=== PATIENT | female | born 1990 | race Two or more races ===

== ENCOUNTER 2019-08-23 20:25 | Emergency (ER) | payer SELFPAY ==
[~2019-08-23] VITALS: Ht 160 cm; Wt 63.5 kg
--- NOTE | 2019-08-23 20:45 | NUR ---
ED Nurse Note: Patient walked in from home d/t n/v/d for last 2 days. Patient denies cough or SOB. Patient aao x 4 and ambulatory. Patient stated emesis undigested food. Patient placed in gown and svp monetization. no acute distress noted.
[2019-08-23 20:57] VITALS: BP 137/88
--- NOTE | 2019-08-23 20:58 | NUR ---
ED Nurse Note: ERMD at bedside.
[2019-08-23] MEDS ORDERED: Metoclopramide 10mg/2ml Inj IVP ONE (21:00)
[2019-08-23] MEDS ORDERED: Morphine Sulfate 2mg/ml Inj(IV/IM USE ONLY) IVP ONE (21:00)
[2019-08-23] MEDS ORDERED: DiphenhydrAMINE 50mg/ml Inj IVP ONE (21:00)
[2019-08-23] MEDS ORDERED: Sodium Chloride 1,900 ML IVLG ONE (21:00)
--- NOTE | 2019-08-23 21:02 | Emergency Room Report ---
History of Present Illness General Chief Complaint: Nausea, Vomiting, and Diarrhea Source: Patient Present Illness HPI Patient presents with 1 day of nausea vomiting and diarrhea. She has moved her bowels 3 times and has been watery without any blood. She tried to take some Pepto-Bismol but vomited this back up. She is complaining about muscle aches. She also feels weak when she stands up. She denies any fevers or chills. There is no blood in the vomit. She denies any abdominal pain. Her last menstruation was August 05 and normal for her. She denies dysuria. The muscle aches are rated 10/10 and nonradiating. All extremities have tenderness. Her friend is also ill at this time has a daughter who had vomiting 2 days ago. They ate no unusual foods and she has not travelled. No sore throat, chest pain, palpitations, shortness of breath, rashes, depression, anxiety, visual changes, dizziness, headache. Allergies: Coded Allergies: No Known Allergies (Unverified , 08/23/19) Patient History Past Medical History: see triage record Social History: Denies: smoking, alcohol use, drug use Social History Narrative Not employed at this time Last Menstrual Period: 08/05/19 Now: No : 0 Reviewed Nursing Documentation: PMH: Agreed; PSxH: Agreed Nursing Documentation-PMH Past Medical History: No Stated History Hx Cardiac Problems: No Hx Hypertension: No Hx Pacemaker: No Hx Asthma: No Hx COPD: No Hx Diabetes: No Hx Cancer: No Hx Gastrointestinal Problems: No Hx Dialysis: No History Of Psychiatric Problem: No Hx Neurological Problems: No Hx Cerebrovascular Accident: No Hx Seizures: No Physical Exam Vital Signs Date Time Temp Pulse Resp B/P (MAP) Pulse Ox O2 Delivery O2 Flow Rate FiO2 08/23/19 20:39 99.1 114 19 132/68 (89) 97 Room Air Sp02 EP Interpretation: reviewed, normal General Appearance: well appearing, no apparent distress, GCS 15, non-toxic Head: normocephalic, atraumatic Eyes: bilateral eye normal inspection, bilateral eye PERRL, bilateral eye EOMI ENT: normal pharynx, moist mucus membranes Neck: supple Respiratory: chest non-tender, lungs clear, normal breath sounds Cardiovascular #1: regular rate, rhythm Cardiovascular #2: 2+ radial (R) Gastrointestinal: normal inspection, normal bowel sounds, non tender, no mass, non-distended Musculoskeletal: back normal, normal range of motion, digits/nails normal, gait /station normal Neurologic: alert, oriented x3, grossly normal Psychiatric: mood/affect normal Skin: no rash, warm/dry Medical Decision Making Diagnostic Impression: Primary Impression: Gastroenteritis ER Course Patient presents with nausea vomiting diarrhea with body aches. Differential includes food poisoning versus gastroenteritis. Patient will be evaluated with labs. She will receive IV hydration Reglan Benadryl Pepcid and a small dose of morphine. Labs significant for normal white count. Potassium minimally low. Urinalysis clear. Patient improved with treatment. She is tolerating oral intake. Pain is resolved with treatment. Discussed treatment plan with patient. Patient stable for outpatient observation and treatment. Labs Test 08/23/19 21:12 08/23/19 21:50 White Blood Count 10.2 K/UL (4.8-10.8) Red Blood Count 4.12 M/UL (4.20-5.40) Hemoglobin 13.0 G/DL (12.0-16.0) Hematocrit 36.7 % (37.0-47.0) Mean Corpuscular Volume 89 FL (80-99) Mean Corpuscular Hemoglobin 31.5 PG (27.0-31.0) Mean Corpuscular Hemoglobin Concent 35.4 G/DL (32.0-36.0) Red Cell Distribution Width 11.1 % (11.6-14.8) Platelet Count 243 K/UL (150-450) Mean Platelet Volume 7.1 FL (6.5-10.1) Neutrophils (%) (Auto) 78.2 % (45.0-75.0) Lymphocytes (%) (Auto) 12.5 % (20.0-45.0) Monocytes (%) (Auto) 8.8 % (1.0-10.0) Eosinophils (%) (Auto) 0.2 % (0.0-3.0) Basophils (%) (Auto) 0.3 % (0.0-2.0) Sodium Level 136 MMOL/L (136-145) Potassium Level 3.4 MMOL/L (3.5-5.1) Chloride Level 101 MMOL/L (98-107) Carbon Dioxide Level 28 MMOL/L (21-32) Anion Gap 7 mmol/L (5-15) Blood Urea Nitrogen 8 mg/dL (7-18) Creatinine 0.9 MG/DL (0.55-1.30) Estimat Glomerular Filtration Rate > 60 mL/min (>60) Glucose Level 101 MG/DL (74-106) Calcium Level 8.7 MG/DL (8.5-10.1) Total Bilirubin 0.8 MG/DL (0.2-1.0) Aspartate Amino Transf (AST/SGOT) 15 U/L (15-37) Alanine Aminotransferase (ALT/SGPT) 22 U/L (12-78) Alkaline Phosphatase 62 U/L (46-116) Total Protein 8.3 G/DL (6.4-8.2) Albumin 3.9 G/DL (3.4-5.0) Globulin 4.4 g/dL Albumin/Globulin Ratio 0.9 (1.0-2.7) Lipase 75 U/L (73-393) Urine Color Pale yellow Urine Appearance Clear Urine pH 5 (4.5-8.0) Urine Specific [place] 1.015 (1.005-1.035) Urine Protein 3+ (NEGATIVE) Urine Glucose (UA) Negative (NEGATIVE) Urine Ketones Negative (NEGATIVE) Urine Blood 1+ (NEGATIVE) Urine Nitrite Negative (NEGATIVE) Urine Bilirubin Negative (NEGATIVE) Urine Urobilinogen Normal MG/DL (0.0-1.0) Urine Leukocyte Esterase Negative (NEGATIVE) Urine RBC 2-4 /HPF (0 - 2) Urine WBC 0-2 /HPF (0 - 2) Urine Squamous Epithelial Cells Few /LPF (NONE/OCC) Urine Bacteria Few /HPF (NONE) Last Vital Signs Date Time Temp Pulse Resp B/P (MAP) Pulse Ox O2 Delivery O2 Flow Rate FiO2 08/24/19 00:42 98.6 98 13 118/70 99 Room Air Status: improved Disposition: HOME, SELF-CARE Condition: Improved Scripts Acetaminophen With Codeine (T#3) (TYLENOL #3 TAB*) Y Tab 1 TAB ORAL Q8H PRN for For Pain, #4 TAB Prov: Emir Becerra MD 08/24/19 Ondansetron Odt* (ZOFRAN ODT*) 4 Mg Tab.rapdis 4 MG BC EVERY 8 HOURS, #4 TAB 1 Refill Prov: Emir Becerra MD 08/24/19 Emir Becerra MD Aug 23, 2019 21:02
[2019-08-23 21:35] LABS: BASOPHILS % (AUTO) 0.3 % (0.0-2.0); EOSINOPHILS % (AUTO) 0.2 % (0.0-3.0); HEMATOCRIT 36.7 % (37.0-47.0); LYMPHOCYTES % (AUTO) 12.5 % (20.0-45.0); MEAN CORPUSCULAR VOLUME 89 FL (80-99); MONOCYTES % (AUTO) 8.8 % (1.0-10.0); NEUTROPHILS % (AUTO) 78.2 % (45.0-75.0); PLATELET COUNT 243 K/UL (150-450); RED BLOOD COUNT 4.12 M/UL (4.20-5.40); RED CELL DISTRIBUTION WIDTH 11.1 % (11.6-14.8); WHITE BLOOD COUNT 10.2 K/UL (4.8-10.8)
[2019-08-23 21:54] LABS: ANION GAP 7 mmol/L (5-15); BLOOD UREA NITROGEN 8 mg/dL (7-18); CALCIUM 8.7 MG/DL (8.5-10.1); CARBON DIOXIDE 28 MMOL/L (21-32); CHLORIDE 101 MMOL/L (98-107); CREATININE 0.9 MG/DL (0.55-1.30); POTASSIUM 3.4 MMOL/L (3.5-5.1); SODIUM 136 MMOL/L (136-145)
[2019-08-23 21:58] LABS: ALANINE AMINOTRANSFERASE 22 U/L (12-78); ALBUMIN 3.9 G/DL (3.4-5.0); ALBUMIN/GLOBULIN RATIO 0.9 (1.0-2.7); ALKALINE PHOSPHATASE 62 U/L (46-116); ASPARTATE AMINO TRANSFERASE 15 U/L (15-37); BILIRUBIN,TOTAL 0.8 MG/DL (0.2-1.0)
--- NOTE | 2019-08-23 22:02 | NUR ---
ED Nurse Note: Urine collected and sent to lab.
[2019-08-23 22:25] LABS: APPEARANCE,URINE CLEAR; BILIRUBIN, URINE NEGATIVE (NEGATIVE); COLOR,URINE PALE YELLOW; GLUCOSE, URINE (UA) NEGATIVE (NEGATIVE); KETONES,URINE NEGATIVE (NEGATIVE); LEUKOCYTE ESTERASE ,URINE NEGATIVE (NEGATIVE); NITRITE,URINE NEGATIVE (NEGATIVE); PH,URINE 5 (4.5-8.0); PROTEIN,URINE 3+ (NEGATIVE); UROBILINOGEN,URINE NORMAL MG/DL (0.0-1.0)
[2019-08-23 22:32] VITALS: BP 122/73
[2019-08-24] MEDS ORDERED: ACETAMINOPHEN-1 EAC1 ORAL (00:28)
[2019-08-24] MEDS ORDERED: ONDANSETRON ODT4 MG BC (00:28)
--- NOTE | 2019-08-24 00:41 | NUR ---
ER DISCHARGE NOTE: Patient is cleared to be discharged per ERMD, pt is aox4, on room air, with stable vital signs. pt was given dc and prescription instructions, pt was able to verbalize understanding, pt id band and iv site removed without complications. pt is able to ambulate with steady gait. pt took all belongings.
[2019-08-24 00:42] VITALS: BP 118/70
== END 2019-08-24 00:40 | disposition home or self-care (01) ==
LOC: EMR 21:11
DX: K52.9 Noninfective gastroenteritis and colitis, unspecified (principal)
CPT/HCPCS: 36415; 80053; 81003; 83690; 85025; 96361; 96374; 96375; 99284; J1200; J2270; J2765; J7030; S0028

== ENCOUNTER 2019-09-29 19:51 | Emergency (ER) | payer SELFPAY ==
[~2019-09-29] VITALS: Ht 160 cm; Wt 63.5 kg
[~2019-09-29 19:51] MED LIST: ACETAMINOPHEN-1 EAC1 ORAL; ONDANSETRON ODT4 MG BC
[2019-09-29 20:20] VITALS: BP 135/82
--- NOTE | 2019-09-29 20:20 | NUR ---
ED Nurse Note: Patient walked into ed from home d/t bilateral eye burning x 1 day. Patient aao x 4 and ambulatory. Patient c/o eye pain 04/08. Patient in stable condition.
--- NOTE | 2019-09-29 20:51 | Emergency Room Report ---
History of Present Illness General Chief Complaint: Eye Problems Source: Patient Present Illness HPI 29-year-old female with no symptom past medical history here complaining of irritation and burning sensation in both eyes intermittently x1 day. Patient reports that 2 nights ago she was cleaning her house with some bleach however patient did not splash and eyes. Patient showed allergic reaction to the smell. Did not touch her eyes when handling bleach. Denies blurry vision photophobia at this time. Denies discharge from the eyes. Has been staying at monitor constantly and reports more irritation. Denies trauma to the eyes. Allergies: Coded Allergies: No Known Allergies (Unverified , 08/23/19) Patient History Past Medical History: see triage record Past Surgical History: unable to obtain Pertinent Family History: none Last Menstrual Period: 08/30/19 Now: No Immunizations: UTD Reviewed Nursing Documentation: PMH: Agreed; PSxH: Agreed Nursing Documentation-PMH Past Medical History: No Stated History Hx Cardiac Problems: No Hx Hypertension: No Hx Pacemaker: No Hx Asthma: No Hx COPD: No Hx Diabetes: No Hx Cancer: No Hx Gastrointestinal Problems: No Hx Dialysis: No Hx Neurological Problems: No Hx Cerebrovascular Accident: No Hx Seizures: No Review of Systems All Other Systems: negative except mentioned in HPI Physical Exam Vital Signs Date Time Temp Pulse Resp B/P (MAP) Pulse Ox O2 Delivery O2 Flow Rate FiO2 09/29/19 20:11 98.1 84 16 138/76 (96) 96 Room Air Sp02 EP Interpretation: reviewed, normal General Appearance: no apparent distress, alert, GCS 15, non-toxic Head: normocephalic, atraumatic Eyes: bilateral eye PERRL, bilateral eye other - Conjunctive are injected ENT: hearing grossly normal, normal pharynx, no angioedema, normal voice Neck: full range of motion, supple/symm/no masses Respiratory: chest non-tender, lungs clear, normal breath sounds, no wheezing, speaking full sentences Cardiovascular #1: regular rate, rhythm, no edema, no murmur Gastrointestinal: non tender, soft Genitourinary: no CVA tenderness Musculoskeletal: back normal, inflammation Neurologic: alert, oriented Psychiatric: judgement/insight normal Skin: no rash Lymphatic: no adenopathy Medical Decision Making PA Attestation All my diagnosis and treatment plans were reviewed ad discussed with my supervising physician Dr. Reese Diagnostic Impression: Primary Impression: Allergic conjunctivitis ER Course 29-year-old female with no symptom past medical history here complaining of irritation and burning sensation in both eyes intermittently x1 day. Patient reports that 2 nights ago she was cleaning her house with some bleach however patient did not splash and eyes. Patient showed allergic reaction to the smell. Did not touch her eyes when handling bleach. Denies blurry vision photophobia at this time. Denies discharge from the eyes. Has been staying at monitor constantly and reports more irritation. Denies trauma to the eyes. Ddx considered but are not limited to: bacterial conjunctivitis, allergic conjunctivitis, viral conjunctivitis, periorbital cellulitis, global trauma Vital signs: are WNL, pt. is afebrile H&PE are most consistent with: Allergic conjunctivitis ORDERS: Patanol ED INTERVENTIONS: None required at this time. DISCHARGE: At this time pt. is stable for d/c to home. Will provide printed patient care instructions, and any necessary prescriptions. Care plan and follow up instructions have been discussed with the patient prior to discharge. Patient to follow primary care provider and possibly public health aides teacher, at this time no Timmy lens of the left ear is 2 days later. Patient to follow-up primary care, if worsening symptoms return to emergency room Last Vital Signs Date Time Temp Pulse Resp B/P (MAP) Pulse Ox O2 Delivery O2 Flow Rate FiO2 09/29/19 20:20 98.1 89 18 135/82 98 Room Air Disposition: HOME, SELF-CARE Condition: Stable Scripts Olopatadine (Patanol) 5 Ml Drops 1 DROP OD BID for 7 Days, #5 ML Prov: Ronald Pugh 09/29/19 Patient Instructions: Allergic Conjunctivitis, [id number] Additional Instructions: Use drops as been prescribed, avoid prolonged screen exposure time. Wear protective sunglasses, change your pillowcase, avoid rubbing eyes. Avoid wearing eye make-up. If worsening symptoms return to the emergency room. Follow-up with your primary care provider and possible public health aides teacher. Ronald Pugh Sep 29, 2019 20:51
[2019-09-29] MEDS ORDERED: PATANOL1 DROP OD (20:54)
[2019-09-29 21:06] VITALS: BP 128/95
--- NOTE | 2019-09-29 21:06 | NUR ---
ER DISCHARGE NOTE: Patient is cleared to be discharged per ERMD, pt is aox4, on room air, with stable vital signs. pt was given dc and prescription instructions, pt was able to verbalize understanding, pt id band removed. pt is able to ambulate with steady gait. pt took all belongings. pt stable upon discharge.
== END 2019-09-29 21:06 | disposition home or self-care (01) ==
LOC: EMR 20:40
DX: H10.13 Acute atopic conjunctivitis, bilateral (principal)
CPT/HCPCS: 99282